=== PATIENT | male | born 1970 | race Caucasian/White ===

== ENCOUNTER 2019-01-02 10:55 | Emergency (ER) | payer SELFPAY ==
--- NOTE | 2019-01-02 11:22 | RAD ---
XR Wrist 3 Rt View STANDARD: 01/02/2019 11:07 AM CLINICAL INDICATION: Injury COMPARISON: None. FINDINGS: Fracture:No fracture. Arthropathy:None of significance. Incidental findings:None of significance. IMPRESSION: No acute osseous abnormality. If symptoms persist subsequent conservative management, a short-term follow-up in 5 7 days would be i ndicated to exclude an occult injury.
== END 2019-01-02 12:17 | disposition home or self-care (01) ==
LOC: ERS 10:55
DX: M25.531 Pain in right wrist (principal); F17.210 Nicotine dependence, cigarettes, uncomplicated